=== PATIENT | male | born 1950 | race Caucasian/White ===

== ENCOUNTER 2017-11-26 21:26 | Emergency (ER) | payer MEDICARE, OTHER ==
[~2017-11-26] VITALS: Ht 190.5 cm; Wt 131.5 kg
[~2017-11-26 21:26] MED LIST: ASPI81CH PO; CHLO25B PO; Coreg12.5 MG PO; EZET10 PO; Flovent 44 mc10.6 GM; IRBE75 PO; NORT75 PO; SOLI5 PO; TERA5 PO; TYLECOD3 PO
[2017-11-26] MEDS ORDERED: Percocet 5-3251 EACH PO (22:47)
[2017-11-26] MEDS ORDERED: LIDO700A20 TOP (22:47)
[2017-11-26] MEDS ORDERED: IBUP600 PO (22:47)
[2018-06-24] MEDS ORDERED: Omeprazole20 M1 (13:25)
[2018-06-24] MEDS ORDERED: OXYB5 (13:25)
[2018-06-24] MEDS ORDERED: TERA5 (13:25)
[2018-06-24] MEDS ORDERED: CLEM1.34 (13:26)
== END 2017-11-26 23:00 | disposition home or self-care (01) ==
LOC: ER 21:26
DX: S09.90XA Unspecified injury of head, initial encounter (principal); S30.0XXA Contusion of lower back and pelvis, initial encounter; Z79.899 Other long term (current) drug therapy; Z79.82 Long term (current) use of aspirin; W10.9XXA Fall (on) (from) unspecified stairs and steps, initial encounter; Z87.891 Personal history of nicotine dependence
CPT/HCPCS: 72070; 72100; 96372; 99283; J1885

== ENCOUNTER 2017-12-08 16:16 | Emergency (ER) | payer MEDICARE, OTHER ==
[~2017-12-08] VITALS: Ht 188 cm; Wt 129.3 kg
[~2017-12-08 16:16] MED LIST changes: +IBUP600 PO; +LIDO700A20 TOP; +Percocet 5-3251 EACH PO
[2017-12-08] MEDS ORDERED: Norco 5-325 Ta1 EACH PO (18:22)
[2017-12-08] MEDS ORDERED: Kristalose20 GM PO (18:22)
[2018-06-24] MEDS ORDERED: TERA5 (13:25)
[2018-06-24] MEDS ORDERED: Omeprazole20 M1 (13:25)
[2018-06-24] MEDS ORDERED: OXYB5 (13:25)
[2018-06-24] MEDS ORDERED: CLEM1.34 (13:26)
== END 2017-12-08 18:43 | disposition home or self-care (01) ==
LOC: ER 16:16
DX: M54.16 Radiculopathy, lumbar region (principal); G89.29 Other chronic pain
CPT/HCPCS: 99282

== ENCOUNTER 2018-12-12 00:49 | Emergency (ER) | payer MEDICARE, OTHER ==
[~2018-12-12] VITALS: Ht 190.5 cm; Wt 129.3 kg
[~2018-12-12 00:49] MED LIST changes: +CLEM1.34; +Kristalose20 GM PO; +Norco 5-325 Ta1 EACH PO; +OXYB5; +Omeprazole20 M1; +TERA5
[2018-12-12 02:56] LABS: BASOPHILS ABSOLUTE AUTO 0.02 K/mm3 (0.00-0.23); BASOPHILS PERCENT AUTO 0 % (0-2); EOSINOPHILS ABSOLUTE AUTO 0.09 K/mm3 (0.00-0.68); EOSINOPHILS PERCENT AUTO 1 % (0-6); Hematocrit 45.8 % (37.0-53.0); Hemoglobin 15.7 g/dL (13.5-17.5); IMMATURE GRAN ABSOLUTE AUTO 0.05 K/mm3 (0.00-0.10); IMMATURE GRAN PERCENT AUTO 0 % (0-1); LYMPHOCYTES ABSOLUTE AUTO 0.85 K/mm3 (0.84-5.20); LYMPHOCYTES PERCENT AUTO 6 % (21-46); MONOCYTES ABSOLUTE AUTO 1.13 K/mm3 (0.16-1.47); MONOCYTES PERCENT AUTO 8 % (4-13); Mean Corpuscular HGB 33.6 pg (26.0-34.0); Mean Corpuscular HGB Conc 34.3 g/dL (31.5-36.5); Mean Corpuscular Volume 98 fL (80-100); Mean Platelet Volume 10.5 fL (9.1-12.4); NEUTROPHILS ABSOLUTE AUTO 12.93 K/mm3 (1.96-9.15); NEUTROPHILS PERCENT AUTO 86 % (41-73); Platelet Count 292 K/mm3 (150-400); RDW Coefficient Variation 11.9 % (11.7-14.2); RDW Standard Deviation 43.2 fL (35.1-46.3); Red Blood Cell Count 4.67 M/mm3 (4.30-5.90); White Blood Cell Count 15.07 K/mm3 (4.00-11.30)
[2018-12-12 03:14] LABS: Alanine Aminotransfer (ALT/SGP 24 U/L (12-78); Albumin, Blood 3.9 g/dL (3.4-5.0); Alk Phos 74 U/L (50-136); Anion Gap 8 mmol/L (6-16); Aspartate Aminotrans (AST/SGOT 13 U/L (12-37); Bilirubin, Total 1.9 mg/dL (0.1-1.0); Blood Urea Nitrogen 15 mg/dL (8-24); Bun/Creatinine Ratio 13.8 (12.0-20.0); CO2, Blood 30 mmol/L (21-32); Calcium, Blood 8.7 mg/dL (8.5-10.1); Chloride, Blood 97 mmol/L (98-108); Creatinine, Blood 1.09 mg/dL (0.60-1.20); Globulin, Blood 3.8 g/dL (2.2-4.0); Glomerular Filtration Rate >60 (60-); Glucose, Blood 118 mg/dL (70-99); Potassium, Blood 3.6 mmol/L (3.5-5.5); Sodium, Blood 135 mmol/L (136-145); Total Protein, Blood 7.7 g/dL (6.4-8.2); Troponin I <0.015 ng/mL (0.000-0.040)
[2018-12-12] MEDS ORDERED: ONDA4ODT MM (05:33)
== END 2018-12-12 06:00 | disposition home or self-care (01) ==
LOC: ER 00:49
PROVIDERS: Emergency Medicine
DX: R10.84 Generalized abdominal pain (principal); R11.0 Nausea; K21.9 Gastro-esophageal reflux disease without esophagitis; G89.29 Other chronic pain; M54.9 Dorsalgia, unspecified; Z98.1 Arthrodesis status; Z79.82 Long term (current) use of aspirin; Z79.899 Other long term (current) drug therapy; Z87.891 Personal history of nicotine dependence
CPT/HCPCS: 36415; 74177; 80053; 83690; 84484; 85025; 96361; 96374; 96375; 99284-25; J1885; J2405; J2550; J7030; Q9967

== ENCOUNTER → 2019-02-25 | Outpatient (CLI) | payer MEDICARE, OTHER ==
[~2019-02-25] MED LIST changes: +ONDA4ODT MM
[2019-02-25 15:22] LABS: Source, Urine Clean Catch
[2019-02-25 15:41] LABS: Bilirubin, Urine Neg (Neg); Blood, Urine Neg (Neg); Glucose Qualitative, Urine Neg (Neg); Ketones, Urine Neg (Neg); Leukocyte Esterase, Urine Neg (Neg); Nitrite, Urine Neg (Neg); Protein, Urine Neg (Neg); Specific Gravity, Urine 1.005 (1.003-1.022); Urobilinogen, Urine NORM (Normal)
[2019-02-25 16:12] LABS: Appearance, Urine Clear (Clear); Color, Urine Yellow (P-Yellow)
== END | disposition home or self-care (01) ==
LOC: LAB SHORT 15:20 → LAB 15:20 → LAB FUT 02-25 16:50 → EDSTATUS 02-25 16:50
PROVIDERS: Family Medicine
DX: R30.0 Dysuria (principal)
CPT/HCPCS: 81003

== ENCOUNTER 2019-07-19 16:02 | Inpatient (IN) | payer MEDICARE, OTHER ==
[~2019-07-19] VITALS: Ht 190.5 cm; Wt 132.9 kg
[~2019-07-19 16:02] MED LIST changes: -ASPI81CH PO; -Coreg12.5 MG PO; -IRBE75 PO; -OXYB5
[2019-07-19 16:36] LABS: BASOPHILS ABSOLUTE AUTO 0.02 K/mm3 (0.00-0.23); BASOPHILS PERCENT AUTO 0 % (0-2); EOSINOPHILS ABSOLUTE AUTO 0.01 K/mm3 (0.00-0.68); EOSINOPHILS PERCENT AUTO 0 % (0-6); Hematocrit 43.5 % (37.0-53.0); Hemoglobin 15.2 g/dL (13.5-17.5); IMMATURE GRAN ABSOLUTE AUTO 0.05 K/mm3 (0.00-0.10); IMMATURE GRAN PERCENT AUTO 0 % (0-1); LYMPHOCYTES ABSOLUTE AUTO 0.75 K/mm3 (0.84-5.20); LYMPHOCYTES PERCENT AUTO 5 % (21-46); MONOCYTES ABSOLUTE AUTO 1.02 K/mm3 (0.16-1.47); MONOCYTES PERCENT AUTO 6 % (4-13); Mean Corpuscular HGB 34.1 pg (26.0-34.0); Mean Corpuscular HGB Conc 34.9 g/dL (31.5-36.5); Mean Corpuscular Volume 98 fL (80-100); NEUTROPHILS ABSOLUTE AUTO 14.42 K/mm3 (1.96-9.15); NEUTROPHILS PERCENT AUTO 89 % (41-73); Platelet Count 261 K/mm3 (150-400); RDW Coefficient Variation 12.2 % (11.7-14.2); Red Blood Cell Count 4.46 M/mm3 (4.30-5.90); White Blood Cell Count 16.27 K/mm3 (4.00-11.30)
[2019-07-19 16:55] LABS: Alanine Aminotransfer (ALT/SGP 25 U/L (12-78); Albumin, Blood 3.6 g/dL (3.4-5.0); Alk Phos 73 U/L (50-136); Anion Gap 5 mmol/L (6-16); Aspartate Aminotrans (AST/SGOT 15 U/L (12-37); Bilirubin, Total 1.2 mg/dL (0.1-1.0); Blood Urea Nitrogen 19 mg/dL (8-24); Bun/Creatinine Ratio 19.1 (12.0-20.0); CO2, Blood 25 mmol/L (21-32); Calcium, Blood 8.8 mg/dL (8.5-10.1); Chloride, Blood 104 mmol/L (98-108); Globulin, Blood 3.6 g/dL (2.2-4.0); Glomerular Filtration Rate >60 (60-); Glucose, Blood 119 mg/dL (70-99); Potassium, Blood 3.6 mmol/L (3.5-5.5); Sodium, Blood 134 mmol/L (136-145); Total Protein, Blood 7.2 g/dL (6.4-8.2)
[2019-07-19 20:27] LABS: International Normalized Ratio 1.03; Prothrombin Time Results 10.9 Sec (9.7-11.5)
--- NOTE | 2019-07-19 21:04 | NUR ---
Report given by Brianne Granda RN from ER. Pt to PCU via bed at 2108. pt transfer independantly from [facility] to PCU bed with no CP or SOB.
[2019-07-19 23:50] LABS: Source, Urine Clean Catch
[2019-07-19 23:54] LABS: Appearance, Urine Clear (Clear); Bilirubin, Urine Neg (Neg); Blood, Urine Neg (Neg); Color, Urine Amber (P-Yellow); Glucose Qualitative, Urine Neg (Neg); Ketones, Urine Neg (Neg); Leukocyte Esterase, Urine Neg (Neg); Nitrite, Urine Neg (Neg); Protein, Urine Neg (Neg); Urobilinogen, Urine NORM (Normal)
[2019-07-20 04:08] LABS: BASOPHILS ABSOLUTE AUTO 0.01 K/mm3 (0.00-0.23); BASOPHILS PERCENT AUTO 0 % (0-2); EOSINOPHILS ABSOLUTE AUTO 0.01 K/mm3 (0.00-0.68); EOSINOPHILS PERCENT AUTO 0 % (0-6); Hemoglobin 14.2 g/dL (13.5-17.5); IMMATURE GRAN ABSOLUTE AUTO 0.07 K/mm3 (0.00-0.10); IMMATURE GRAN PERCENT AUTO 1 % (0-1); LYMPHOCYTES ABSOLUTE AUTO 0.54 K/mm3 (0.84-5.20); LYMPHOCYTES PERCENT AUTO 4 % (21-46); MONOCYTES ABSOLUTE AUTO 1.14 K/mm3 (0.16-1.47); MONOCYTES PERCENT AUTO 8 % (4-13); Mean Corpuscular HGB 34.5 pg (26.0-34.0); Mean Corpuscular HGB Conc 35.5 g/dL (31.5-36.5); Mean Corpuscular Volume 97 fL (80-100); NEUTROPHILS ABSOLUTE AUTO 11.96 K/mm3 (1.96-9.15); NEUTROPHILS PERCENT AUTO 87 % (41-73); Platelet Count 209 K/mm3 (150-400); RDW Coefficient Variation 12.4 % (11.7-14.2); RDW Standard Deviation 44.2 fL (35.1-46.3); Red Blood Cell Count 4.12 M/mm3 (4.30-5.90); White Blood Cell Count 13.73 K/mm3 (4.00-11.30)
--- NOTE | 2019-07-20 04:29 | NUR ---
At approx 2345, SALLY Michael to bedside with pt to update on current illness. Pt off heprin gtt per orders d/t change in what DISPLAY MANAGER thinks is dx. Per SALLY Michael, pt likely not having NSTEMI and is likely having an infection from an unknown source. Troponin wnl for second draw. Levoquin ordered and infusing per orders, VS remain stable. No change in pt condition since admission. Will continue to montior.
[2019-07-20 04:30] LABS: Anion Gap 8 mmol/L (6-16); Blood Urea Nitrogen 17 mg/dL (8-24); Bun/Creatinine Ratio 17.6 (12.0-20.0); CHOL/HDL RATIO 2.5; CO2, Blood 29 mmol/L (21-32); Calcium, Blood 8.5 mg/dL (8.5-10.1); Chloride, Blood 99 mmol/L (98-108); Cholesterol 159 mg/dL (50-200); Creatinine, Blood 0.97 mg/dL (0.60-1.20); Glomerular Filtration Rate >60 (60-); Glucose, Blood 139 mg/dL (70-99); HDL Cholesterol 63 mg/dL (>39); LDL/HDL RATIO 1.2; Low Density Lipoprotein Chol 77 mg/dL (0-110); Magnesium, Blood 1.7 mg/dL (1.6-2.4); Potassium, Blood 3.6 mmol/L (3.5-5.5); Sodium, Blood 136 mmol/L (136-145); Triglycerides 93 mg/dL (30-160); Very Low Density Lipoprot Chol 18 mg/dL (6-32)
--- NOTE | 2019-07-20 07:11 | NUR ---
Shift Summary VSS. No acute changes this shift since admission. See previous notes for changes in plan of care per MD. Breathing easy and unlabored. No changes since admission assessment. Pt remains alert and oriented throughout shift, calls to make needs known, c/o pain but denies need for pain medication. Pt sits in recliner for resting, he perfers the recliner over the bed for comfort. ABX given per orders. Pt is in no apparent sign of distress. Currently sleeping in recliner, appears comfortable. Report given to day RNMichelle who assumes care.
--- NOTE | 2019-07-20 11:26 | NUR ---
UPDATE ASSUMED CARE AT APPROXIMATELY 0730. PT ALERT AND ORIENTED. VS STABLE. TEMP ELEVATED AND TREATED PER EMAR. BP STABLE. O2 SATS REMAIN ABOVE 90% ON RA. PT COMPLAINS OF ABD TENDERNESS THAT FEELS LIKE "AN UPSET STOMACH". PT DENIES ANY CHEST PAIN OR PRESSURE. DR. SANCHEZ IN THIS AM WITH TRANSFER ORDERS. REPORT CALLED TO MEDICAL FLOOR RN. PT TALKING WITH CHAPMIAN AND THEN PT WILL BE TAKEN UP BY WHEELCHAIR.
--- NOTE | 2019-07-20 19:58 | NUR ---
SHIFT SUMMARY 1200 RECEIVED PT TO 333 VIA BED, FROM PCU 7. A&O, PLEASANT AND TALKATIVE. RECEIVED REPORT FROM JAVIER JARVIS, PT TO ER WITH C/O ABD PAIN AND THEN REPORTED CP. ADMITTED FOR POSSIBLE NSTEMI, BUT LATER FOUND TO HAVE ELEVATED WBC'S AND POSSIBLE INFECTION, PER REPORT. PT TO REMAIN UNTIL CX'S RETURN FOR POSSIBLE INFECTION SOURCE. PT HAS BEEN INDEPENDENT IN , BUT IS A LITTLE UNSTEADY USES CRUTCHES AT BASELINE. DECLINED USING HIS CRUTCHES OR A WALKER WHILE HERE. INFORMED OF STOOL CX NEEDED, VERBALIZED UNDERSTANDING. REPORTED THAT HE HAD A BM THIS AM. RECLINER OBTAINED FOR PT COMFORT, REPORTS THAT HIS BACK BOTHERS HIM IN BED. MEDICATED FOR C/O JUAREZ AND THEN WENT TO SLEEP. CALL LT IN REACH.
--- NOTE | 2019-07-21 06:01 | NUR ---
SHIFT SUMMARY PT A/O INDEPENDENT IN ROOM. STUTTERS AT TIMES WHEN TALKING. WENT FROM RECLINER TO BED TO RECLINER BUT SLEPT IN RECLINER DURING NIGHT MOSTLY. NO STOOL SAMPLE. NO C/O CP. CALL LIGHT IN REACH.
--- NOTE | 2019-07-21 09:47 | NUR ---
PATIENT DID NOT EAT BREAKFAST THIS MORNING WHEN I BROUGHT IN THE TRAY PATIENT STATED "I DO NOT WANT THAT I CANT DO IT. I AM SICK OF THAT FOOD". PATIENT REFUSED THE TRAY.
[2019-07-21] MEDS ORDERED: Florastor250 MG PO (11:10)
[2019-07-21] MEDS ORDERED: AMOCLA875 PO (11:10)
--- NOTE | 2019-07-21 12:23 | NUR ---
DISCHARGE INSTRUCTIONS REVIEWED WITH PT, IV X2 DC'D INTACT. F/U APPT MADE WITH PCP AND DR JOHNSTON. PT AWAITING RIDE HOME AT THIS TIME.
--- NOTE | 2019-07-21 12:46 | NUR ---
PT DC'D HOME WITH PRIVATE CARE, PT ESCORTED OUT VIA W/C AT 1247.
--- NOTE | 2019-07-22 00:19 | NUR ---
PT CALLED IN WITH QUESTIONS ABOUT HIS DISCHARGE MEDICATION ORDERES. VERIFIED NAME, , ADDRESS AND PHONE NUMBER.
== END 2019-07-21 12:55 | disposition home or self-care (01) | DRG 872 ==
LOC: ER 16:02 → PCU 19:53 → MEDS 07-20 11:55 → ENPENDDIS 07-21 11:11 → MEDS 07-21 12:55
PROVIDERS: Nurse Practitioner Acute Care; Physician Assistant; ADMIT Family Medicine
DX: A41.9 Sepsis, unspecified organism (principal); N40.0 Benign prostatic hyperplasia without lower urinary tract symptoms; K21.9 Gastro-esophageal reflux disease without esophagitis; E83.42 Hypomagnesemia; K57.90 Diverticulosis of intestine, part unspecified, without perforation or abscess without bleeding; I25.10 Atherosclerotic heart disease of native coronary artery without angina pectoris; E66.01 Morbid (severe) obesity due to excess calories; G47.33 Obstructive sleep apnea (adult) (pediatric); E78.5 Hyperlipidemia, unspecified; E11.9 Type 2 diabetes mellitus without complications; Z87.891 Personal history of nicotine dependence; F10.10 Alcohol abuse, uncomplicated; K59.00 Constipation, unspecified; I10 Essential (primary) hypertension; Z68.35 Body mass index [BMI] 35.0-35.9, adult
CPT/HCPCS: 36415; 71046; 80048; 80053; 80061; 81003; 83605; 83690; 83735; 83880; 84145; 84153; 84484; 85025; 85610; 85651; 85730; 86140; 87040; 93005; 93010; 93306; 94762; 96374; 99285-25; A9270; J1644; J1650; J1940; J1956; J2405; J3370; J3475; J3480; J7030; J7050

== ENCOUNTER 2019-07-23 18:49 | Inpatient (IN) | payer MEDICARE, OTHER ==
[~2019-07-23] VITALS: Ht 190.5 cm; Wt 130.0 kg
[~2019-07-23 18:49] MED LIST changes: +AMOCLA875 PO; +Florastor250 MG PO
[2019-07-23 20:15] LABS: BASOPHILS ABSOLUTE AUTO 0.03 K/mm3 (0.00-0.23); BASOPHILS PERCENT AUTO 0 % (0-2); EOSINOPHILS ABSOLUTE AUTO 0.16 K/mm3 (0.00-0.68); EOSINOPHILS PERCENT AUTO 2 % (0-6); Hemoglobin 13.6 g/dL (13.5-17.5); IMMATURE GRAN ABSOLUTE AUTO 0.04 K/mm3 (0.00-0.10); IMMATURE GRAN PERCENT AUTO 0 % (0-1); LYMPHOCYTES ABSOLUTE AUTO 0.83 K/mm3 (0.84-5.20); LYMPHOCYTES PERCENT AUTO 8 % (21-46); MONOCYTES ABSOLUTE AUTO 1.06 K/mm3 (0.16-1.47); MONOCYTES PERCENT AUTO 10 % (4-13); Mean Corpuscular HGB 33.7 pg (26.0-34.0); Mean Corpuscular Volume 99 fL (80-100); Mean Platelet Volume 11.5 fL (9.1-12.4); NEUTROPHILS ABSOLUTE AUTO 8.86 K/mm3 (1.96-9.15); NEUTROPHILS PERCENT AUTO 81 % (41-73); Platelet Count 255 K/mm3 (150-400); RDW Coefficient Variation 12.5 % (11.7-14.2); Red Blood Cell Count 4.03 M/mm3 (4.30-5.90); White Blood Cell Count 10.98 K/mm3 (4.00-11.30)
[2019-07-23 20:36] LABS: Albumin/Globulin Ratio 0.7 (0.8-1.8); Bilirubin, Total 0.9 mg/dL (0.1-1.0); Bun/Creatinine Ratio 16.9 (12.0-20.0); Calcium, Blood 8.2 mg/dL (8.5-10.1); Creatinine, Blood 3.61 mg/dL (0.60-1.20); Globulin, Blood 4.3 g/dL (2.2-4.0); Potassium, Blood 3.1 mmol/L (3.5-5.5); Total Protein, Blood 7.3 g/dL (6.4-8.2)
[2019-07-23] MEDS ORDERED: Avapro300 MG PO (21:22)
[2019-07-23] MEDS ORDERED: CARV25 PO (21:23)
[2019-07-23] MEDS ORDERED: ATOR40TA PO (21:23)
[2019-07-23] MEDS ORDERED: CLOP75 PO (21:23)
[2019-07-23] MEDS ORDERED: Isosorbide Mono60 MG PO (21:24)
[2019-07-23] MEDS ORDERED: MAGOX 400400 MG PO (21:24)
[2019-07-23] MEDS ORDERED: TORSE20 PO (21:25)
[2019-07-23] MEDS ORDERED: Nitroglycerin0.4 MG SL (21:25)
[2019-07-23] MEDS ORDERED: CHLO25B PO (21:26)
[2019-07-23] MEDS ORDERED: Flomax0.4 MG PO (21:27)
[2019-07-23] MEDS ORDERED: OMEPRAZOLE20 MG PO (21:28)
[2019-07-23] MEDS ORDERED: OXYB5 PO (21:28)
[2019-07-23] MEDS ORDERED: Aspir 8181 MG PO (21:53)
[2019-07-24 00:13] LABS: Bilirubin, Urine Neg (Neg); Blood, Urine Neg (Neg); Glucose Qualitative, Urine Neg (Neg); Ketones, Urine Neg (Neg); Leukocyte Esterase, Urine 1+ (Neg); Nitrite, Urine Neg (Neg); Protein, Urine Neg (Neg); Source, Urine Clean Catch; Specific Gravity, Urine 1.015 (1.003-1.022); Urobilinogen, Urine NORM (Normal)
[2019-07-24 00:19] LABS: Appearance, Urine Clear (Clear); Color, Urine Yellow (P-Yellow)
[2019-07-24 00:20] LABS: Bacteria Few /hpf; Red Blood Cells, Urine Not Seen /hpf (0-2); Squamous Epithelial Cells Rare /hpf (Few)
--- NOTE | 2019-07-24 04:39 | NUR ---
07/23/19 2245 69 Y/O MALE ADMITTED TO ROOM 308, PT VERY POOR HISTORIAN WITH FLIGHT OF IDEAS AND REQUIRES FREQUENT FOCUS ON TOPIC DISCUSSED AT HAND, UNABLE TO RECONCILE MEDICATIONS HE HAS NO IDEA WHAT HE TAKES.
--- NOTE | 2019-07-24 04:40 | NUR ---
SHIFT SUMMARY: 69 Y/O MALE RESTED COMFORTABLY ALL SHIFT, DENIES PAIN OR NAUSEA, SPEECH IMPEDIMENT NOTED AND SLIGHT FORGETFULNESS NOTED AT TIMES, PT VOICED HE USES METAL CRUTCHES FITTED TO ARMS FOR ALL AMBULATION OR WALKER AT HOME, BED ALARM APPLIED, BED LOW POSITION, CALL LIGHT AT SIDE, TELEMETRY REFLECTS NSR WITH HEART RATE 72.
[2019-07-24 05:35] LABS: Hematocrit 38.9 % (37.0-53.0); Hemoglobin 13.1 g/dL (13.5-17.5); Mean Corpuscular HGB Conc 33.7 g/dL (31.5-36.5); Mean Corpuscular Volume 101 fL (80-100); Mean Platelet Volume 11.6 fL (9.1-12.4); Platelet Count 235 K/mm3 (150-400); RDW Coefficient Variation 12.7 % (11.7-14.2); RDW Standard Deviation 47.3 fL (35.1-46.3); Red Blood Cell Count 3.85 M/mm3 (4.30-5.90)
[2019-07-24 05:56] LABS: Albumin, Blood 2.7 g/dL (3.4-5.0); Albumin/Globulin Ratio 0.7 (0.8-1.8); Bilirubin, Total 0.6 mg/dL (0.1-1.0); Bun/Creatinine Ratio 19.5 (12.0-20.0); Calcium, Blood 7.9 mg/dL (8.5-10.1); Creatinine, Blood 3.07 mg/dL (0.60-1.20); Globulin, Blood 3.9 g/dL (2.2-4.0); Potassium, Blood 3.5 mmol/L (3.5-5.5); Total Protein, Blood 6.6 g/dL (6.4-8.2)
--- NOTE | 2019-07-24 19:15 | NUR ---
SHIFT SUMMARY: NO ACUTE CHANGES TO REPORT THIS SHIFT. PT A&O; CALM AND COOPERATIVE WITH CARE. NO C/O PAIN THIS SHIFT TELE IN PLACE; SR @ 82 PER RING SPINNER DURING MORNING ASSESSMENT. IV REHYDRATION CONTINUING. REPORT GIVEN TO ONCOMING RN.
[2019-07-24] MEDS ORDERED: EZET10 PO (22:43)
[2019-07-24] MEDS ORDERED: CLARITIN10 MG PO (22:47)
[2019-07-24] MEDS ORDERED: Amoxicillin500 MG PO (22:51)
[2019-07-24] MEDS ORDERED: Augmentin 875-1 EACH (22:53)
[2019-07-24] MEDS ORDERED: METAMUCIL POWD575 G1 PO (22:59)
[2019-07-24] MEDS ORDERED: METAMUCIL MULT660 GM PO (23:01)
[2019-07-24] MEDS ORDERED: TYLECOD3 (23:05)
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
[2019-07-25 04:58] LABS: Bun/Creatinine Ratio 23.8 (12.0-20.0); Calcium, Blood 8.1 mg/dL (8.5-10.1); Creatinine, Blood 1.81 mg/dL (0.60-1.20); Potassium, Blood 3.3 mmol/L (3.5-5.5)
--- NOTE | 2019-07-25 05:34 | NUR ---
SHIFT SUMMARY: 69 Y/O MALE RESTED COMFORTABLY ALL SHIFT, SEE PREVIOUS NARRATIVE REGARDING MEDICATION RECONCILITATION PERFORMED BY THIS NURSE, VITAL SIGNS STABLE, DENIES PAIN OR NAUSEA, UP AMBULATING AROUND ROOM PER SELF WITHOUT ISSUE, EAGER TO RETURN HOME, BED LOW POSITION, CALL LIGHT AT SIDE.
[2019-07-25] MEDS ORDERED: LISI5 (12:18)
[2019-07-25] MEDS ORDERED: CARV3.125 PO (13:54)
--- NOTE | 2019-07-25 15:40 | NUR ---
PATIENT DISCHARGE: PATIENT DISCHARGED TO HOME/ XFR TO HOME HEALTH THIS SHIFT. MEDICATION RECONCILIATION COMPLETED; MED LIST FAXED TO [facility]; PATIENT ADVISED TO DISPOSE OF ALL OUT OF DATE HOME MEDICATIONS TO AVOID POTENTIAL DRUG MISHAPS IN FUTURE. DISCHARGE EDUCATION COMPLETED WITH PATIENT. PATIENT TRANSPORTED TO EXIT BY [facility] STAFF WITH WHEELCHAIR AT 1500. PATIENT DEPARTED [facility] VIA PRIVATE AUTO.
== END 2019-07-25 14:59 | disposition home health service (06) | DRG 684 ==
LOC: ER 18:49 → MEDS 18:50
PROVIDERS: Emergency Medicine; Internal Medicine; ADMIT Internal Medicine
DX: N17.9 Acute kidney failure, unspecified (principal); Z79.82 Long term (current) use of aspirin; K21.9 Gastro-esophageal reflux disease without esophagitis; Z96.651 Presence of right artificial knee joint; Z87.891 Personal history of nicotine dependence; E87.6 Hypokalemia; E86.0 Dehydration; E78.5 Hyperlipidemia, unspecified; N40.0 Benign prostatic hyperplasia without lower urinary tract symptoms; Z79.02 Long term (current) use of antithrombotics/antiplatelets; G89.29 Other chronic pain; M54.9 Dorsalgia, unspecified; E66.9 Obesity, unspecified; I51.89 Other ill-defined heart diseases; Z68.35 Body mass index [BMI] 35.0-35.9, adult; I10 Essential (primary) hypertension
CPT/HCPCS: 36415; 76770; 80048; 80053; 81001; 83690; 83735; 83880; 84484; 85025; 85027; 93005; 93010; 96360; 96361; 96372; 97116; 97161; 99284-25; G0378; J1650; J7030

== ENCOUNTER → 2020-03-30 | Outpatient (CLI) | payer MEDICARE, OTHER ==
[~2020-03-30] MED LIST changes: +ATOR40TA PO; +Amoxicillin500 MG PO; +Aspir 8181 MG PO; +Augmentin 875-1 EACH; +Avapro300 MG PO; +CARV25 PO; +CARV3.125 PO; +CLARITIN10 MG PO; +CLOP75 PO; +Flomax0.4 MG PO; +Isosorbide Mono60 MG PO; +LISI5; +MAGOX 400400 MG PO; +METAMUCIL MULT660 GM PO; +METAMUCIL POWD575 G1 PO; +Nitroglycerin0.4 MG SL; +OMEPRAZOLE20 MG PO; +OXYB5 PO; +TORSE20 PO; +TYLECOD3
[2020-03-30 15:35] LABS: Source, Urine Clean Catch
[2020-03-30 17:10] LABS: Bilirubin, Urine Neg (Neg); Blood, Urine Neg (Neg); Glucose Qualitative, Urine Neg (Neg); Ketones, Urine Neg (Neg); Leukocyte Esterase, Urine Neg (Neg); Nitrite, Urine Neg (Neg); Protein, Urine Neg (Neg); Specific Gravity, Urine 1.015 (1.003-1.022); Urobilinogen, Urine NORM (Normal)
[2020-03-30 17:14] LABS: Appearance, Urine Clear (Clear); Color, Urine Yellow (P-Yellow)
== END | disposition home or self-care (01) ==
LOC: LAB 15:25 → LAB SHORT 15:25 → LAB FUT 03-29 18:30
PROVIDERS: Family Medicine
DX: R30.0 Dysuria (principal)
CPT/HCPCS: 81003

== ENCOUNTER → 2022-07-01 | Outpatient (CLI) | payer MEDICARE, OTHER ==
[~2022-07-01] MED LIST changes: +AMLO5 PO; +ASPIR 8181 M1 PO; +EZETIMIBE10 M2 PO; +IRBE150 PO; +MAGNESIUM OXID500 MG PO; +NITR.4SL SL; +ONDA4ODT SL; +Omeprazole20 M1 PO; +TAMS.4ER PO
== END ==
LOC: LAB 12:15 → LAB SHORT 12:15
DX: R30.0 Dysuria (principal)
CPT/HCPCS: 87086

== ENCOUNTER 2023-04-16 13:28 | Day surgery (SDC) | payer MEDICARE, OTHER ==
[~2023-04-16] VITALS: Ht 190.5 cm; Wt 139.8 kg
[2023-04-16] MEDS ORDERED: ANORO ELLIPTA1 EACH (14:22)
[2023-04-16 16:56] VITALS: BP 140/69
== END 2023-04-16 16:49 | disposition home or self-care (01) ==
LOC: ORSCSDS 13:28
PROVIDERS: Internal Medicine Gastroenterology
PROC: 0DBH8ZX Excision of Cecum, Via Natural or Artificial Opening Endoscopic, Diagnostic (ICD-10-PCS; principal; 2023-04-16 14:45)
PROC: 0D5P8ZZ Destruction of Rectum, Via Natural or Artificial Opening Endoscopic (ICD-10-PCS; principal; 2023-04-16 14:45)
PROC: 0DBN8ZX Excision of Sigmoid Colon, Via Natural or Artificial Opening Endoscopic, Diagnostic (ICD-10-PCS; principal; 2023-04-16 14:45)
DX: K62.5 Hemorrhage of anus and rectum (principal); D12.0 Benign neoplasm of cecum; K63.5 Polyp of colon; Q27.39 Arteriovenous malformation, other site; K64.1 Second degree hemorrhoids; K57.30 Diverticulosis of large intestine without perforation or abscess without bleeding; I10 Essential (primary) hypertension; I25.10 Atherosclerotic heart disease of native coronary artery without angina pectoris; E78.5 Hyperlipidemia, unspecified; E11.40 Type 2 diabetes mellitus with diabetic neuropathy, unspecified; G47.33 Obstructive sleep apnea (adult) (pediatric); K21.9 Gastro-esophageal reflux disease without esophagitis; F32.A Depression, unspecified; Z79.899 Other long term (current) drug therapy; Z85.46 Personal history of malignant neoplasm of prostate; E66.9 Obesity, unspecified; Z68.38 Body mass index [BMI] 38.0-38.9, adult
CPT/HCPCS: 88305; J0461; J2001; J2405; J2704; J7120; Q9968

== ENCOUNTER 2023-05-30 15:39 | Emergency (ER) | payer MEDICARE, OTHER ==
[~2023-05-30] VITALS: Ht 190.5 cm; Wt 142.9 kg
[~2023-05-30 15:39] MED LIST changes: +ANORO ELLIPTA1 EACH
[2023-05-30 19:11] LABS: BASOPHILS ABSOLUTE AUTO 0.04 K/mm3 (0.00-0.23); BASOPHILS PERCENT AUTO 0 % (0-2); EOSINOPHILS ABSOLUTE AUTO 0.23 K/mm3 (0.00-0.68); EOSINOPHILS PERCENT AUTO 2 % (0-6); Hematocrit 42.7 % (37.0-53.0); Hemoglobin 14.8 g/dL (13.5-17.5); IMMATURE GRAN ABSOLUTE AUTO 0.03 K/mm3 (0.00-0.10); IMMATURE GRAN PERCENT AUTO 0 % (0-1); LYMPHOCYTES ABSOLUTE AUTO 0.94 K/mm3 (0.84-5.20); LYMPHOCYTES PERCENT AUTO 9 % (21-46); MONOCYTES ABSOLUTE AUTO 0.94 K/mm3 (0.16-1.47); MONOCYTES PERCENT AUTO 9 % (4-13); Mean Corpuscular HGB 33.9 pg (26.0-34.0); Mean Corpuscular HGB Conc 34.7 g/dL (31.5-36.5); Mean Corpuscular Volume 98 fL (80-100); Mean Platelet Volume 11.1 fL (9.1-12.4); NEUTROPHILS ABSOLUTE AUTO 8.55 K/mm3 (1.96-9.15); NEUTROPHILS PERCENT AUTO 80 % (41-73); Platelet Count 222 K/mm3 (150-400); RDW Coefficient Variation 12.7 % (11.7-14.2); RDW Standard Deviation 45.8 fL (35.1-46.3); Red Blood Cell Count 4.37 M/mm3 (4.30-5.90); White Blood Cell Count 10.73 K/mm3 (4.00-11.30)
[2023-05-30 19:31] LABS: Calcium, Blood 8.4 mg/dL (8.5-10.1); Creatinine, Blood 1.31 mg/dL (0.60-1.20); Potassium, Blood 3.9 mmol/L (3.5-5.5)
[2023-05-30 20:00] VITALS: BP 153/68
== END 2023-05-30 20:23 | disposition home or self-care (01) ==
LOC: ER 15:39
PROVIDERS: Emergency Medicine
DX: K64.8 Other hemorrhoids (principal); I10 Essential (primary) hypertension; E78.5 Hyperlipidemia, unspecified; K21.9 Gastro-esophageal reflux disease without esophagitis; Z87.891 Personal history of nicotine dependence; Z79.899 Other long term (current) drug therapy; Z79.1 Long term (current) use of non-steroidal anti-inflammatories (NSAID)
CPT/HCPCS: 80048; 85025; 99283

== ENCOUNTER 2023-06-18 14:04 | Emergency (ER) | payer MEDICARE, OTHER ==
[~2023-06-18] VITALS: Ht 190.5 cm; Wt 138.3 kg
[2023-06-18 14:38] VITALS: BP 113/68
[2023-06-18 15:15] LABS: BASOPHILS ABSOLUTE AUTO 0.04 K/mm3 (0.00-0.23); BASOPHILS PERCENT AUTO 0 % (0-2); EOSINOPHILS ABSOLUTE AUTO 0.35 K/mm3 (0.00-0.68); EOSINOPHILS PERCENT AUTO 4 % (0-6); Hematocrit 44.2 % (37.0-53.0); Hemoglobin 15.3 g/dL (13.5-17.5); IMMATURE GRAN ABSOLUTE AUTO 0.03 K/mm3 (0.00-0.10); IMMATURE GRAN PERCENT AUTO 0 % (0-1); LYMPHOCYTES ABSOLUTE AUTO 0.86 K/mm3 (0.84-5.20); LYMPHOCYTES PERCENT AUTO 10 % (21-46); MONOCYTES ABSOLUTE AUTO 0.58 K/mm3 (0.16-1.47); MONOCYTES PERCENT AUTO 7 % (4-13); Mean Corpuscular HGB 33.6 pg (26.0-34.0); Mean Corpuscular HGB Conc 34.6 g/dL (31.5-36.5); Mean Corpuscular Volume 97 fL (80-100); NEUTROPHILS ABSOLUTE AUTO 7.09 K/mm3 (1.96-9.15); NEUTROPHILS PERCENT AUTO 79 % (41-73); Platelet Count 271 K/mm3 (150-400); RDW Coefficient Variation 12.5 % (11.7-14.2); RDW Standard Deviation 44.8 fL (35.1-46.3); Red Blood Cell Count 4.56 M/mm3 (4.30-5.90); White Blood Cell Count 8.95 K/mm3 (4.00-11.30)
[2023-06-18 15:32] LABS: Albumin, Blood 3.7 g/dL (3.4-5.0); Albumin/Globulin Ratio 1.1 (0.8-1.8); Bilirubin, Total 1.6 mg/dL (0.1-1.0); Calcium, Blood 8.9 mg/dL (8.5-10.1); Creatinine, Blood 1.28 mg/dL (0.60-1.20); Globulin, Blood 3.5 g/dL (2.2-4.0); Potassium, Blood 4.2 mmol/L (3.5-5.5); Total Protein, Blood 7.2 g/dL (6.4-8.2)
== END 2023-06-18 18:40 | disposition home or self-care (01) ==
LOC: ER 14:04
PROVIDERS: Physician Assistant
DX: H54.62 Unqualified visual loss, left eye, normal vision right eye (principal); Z79.899 Other long term (current) drug therapy; K21.9 Gastro-esophageal reflux disease without esophagitis; I25.10 Atherosclerotic heart disease of native coronary artery without angina pectoris; I10 Essential (primary) hypertension; E78.5 Hyperlipidemia, unspecified; Z87.891 Personal history of nicotine dependence
CPT/HCPCS: 80053; 85025; 93005; 93010; 99284-25

== ENCOUNTER → 2025-10-06 | Outpatient (CLI) | payer MEDICARE, OTHER ==
[2025-10-06 16:29] LABS: BASOPHILS ABSOLUTE AUTO 0.05 K/mm3 (0.00-0.23); BASOPHILS PERCENT AUTO 1 % (0-2); EOSINOPHILS ABSOLUTE AUTO 0.20 K/mm3 (0.00-0.68); EOSINOPHILS PERCENT AUTO 3 % (0-6); Hematocrit 41.9 % (37.0-53.0); Hemoglobin 14.1 g/dL (13.5-17.5); IMMATURE GRAN ABSOLUTE AUTO 0.02 K/mm3 (0.00-0.10); IMMATURE GRAN PERCENT AUTO 0 % (0-1); LYMPHOCYTES ABSOLUTE AUTO 0.57 K/mm3 (0.84-5.20); LYMPHOCYTES PERCENT AUTO 8 % (21-46); MONOCYTES ABSOLUTE AUTO 0.49 K/mm3 (0.16-1.47); MONOCYTES PERCENT AUTO 7 % (4-13); Mean Corpuscular HGB Conc 33.7 g/dL (31.5-36.5); Mean Corpuscular Volume 100 fL (80-100); NEUTROPHILS ABSOLUTE AUTO 5.80 K/mm3 (1.96-9.15); NEUTROPHILS PERCENT AUTO 81 % (41-73); NRBC ABSOLUTE 0.00 K/mm3 (0.00-0.02); NRBC Auto 0.0 /100 WBC (0.0-0.2); Platelet Count 245 K/mm3 (150-400); RDW Coefficient Variation 12.9 % (11.7-14.2); RDW Standard Deviation 47.2 fL (35.1-46.3)
[2025-10-06 17:26] LABS: Alanine Aminotransfer (ALT/SGP 157.0 U/L (12-78); Albumin, Blood 3.6 g/dL (3.4-5.0); Albumin/Globulin Ratio 1.0 (0.8-1.8); Anion Gap 6.0 mmol/L (3-11); Aspartate Aminotrans (AST/SGOT 163.0 U/L (12-37); Bilirubin, Total 1.3 mg/dL (0.1-1.0); Blood Urea Nitrogen 18.0 mg/dL (8-24); CO2, Blood 30.0 mmol/L (21-32); Calcium, Blood 8.8 mg/dL (8.5-10.1); Chloride, Blood 104.0 mmol/L (98-108); Creatinine, Blood 1.1 mg/dL (0.60-1.20); Globulin, Blood 3.6 g/dL (2.2-4.0); Glucose, Blood 114.0 mg/dL (70-99); Potassium, Blood 3.9 mmol/L (3.5-5.5); Sodium, Blood 136.0 mmol/L (136-145); Total Protein, Blood 7.2 g/dL (6.4-8.2)
== END ==
LOC: LAB SHORT 14:48 → LAB 14:48
DX: K21.9 Gastro-esophageal reflux disease without esophagitis (principal); R10.13 Epigastric pain; Z86.0100 Personal history of colon polyps, unspecified
CPT/HCPCS: 80053; 85025